=== PATIENT | female | born 1950 | race Caucasian/White ===

== ENCOUNTER → 2016-12-05 | Outpatient (CLI) | payer MEDICARE, OTHER ==
--- NOTE | 2016-12-06 10:45 | MM ---
Reason for exam: screening (asymptomatic). Last mammogram was performed 1 year and 9 months ago. History: Patient is postmenopausal. Physical Findings: A clinical breast exam by your physician is recommended on an annual basis and results should be correlated with mammographic findings. MG Screening Mammo w CAD Bilateral CC and MLO view(s) were taken. XCCL view(s) were taken of the right breast. Prior study comparison: February 22, 2015, bilateral MG screening mammo w CAD. February 01, 2009, bilateral digital screening mammogram. The breast tissue is heterogeneously dense. This may lower the sensitivity of mammography. No significant changes when compared with prior studies. ASSESSMENT: Negative, BI-RAD 1 RECOMMENDATION: Routine screening mammogram of both breasts in 1 year.
== END | disposition home or self-care (01) ==
LOC: RADMAMWWP 15:32
PROVIDERS: ATTEND Family Medicine
DX: Z12.31 Encounter for screening mammogram for malignant neoplasm of breast (principal)

== ENCOUNTER → 2018-04-28 | Outpatient (CLI) | payer MEDICARE, OTHER ==
[2018-04-28 17:57] LABS: Anisocytosis Slight; Basophils % (A) 1 %; Eosinophils # (A) 0.1 k/uL (0-0.7); Eosinophils % (A) 2 %; HCT 31.9 % (34.0-46.0); HGB 9.6 gm/dL (11.4-16.0); Hypochromasia Marked; Lymphocytes # (A) 1.7 k/uL (1.0-4.8); Lymphocytes % (A) 31 %; MCH 25.4 pg (25.0-35.0); MCHC 30.1 g/dL (31.0-37.0); MCV 84.4 fL (80.0-100.0); Mean Platelet Volume 6.7; Monocytes # (A) 0.5 k/uL (0-1.0); Monocytes % (A) 9 %; Neutrophils % (A) 55 %; Platelet Count 327 k/uL (150-450); Poikilocytosis Slight; RBC 3.78 m/uL (3.80-5.40); WBC 5.4 k/uL (3.8-10.6)
== END | disposition home or self-care (01) ==
LOC: LABWHC1 17:13
PROVIDERS: ATTEND Internal Medicine
DX: K26.9 Duodenal ulcer, unspecified as acute or chronic, without hemorrhage or perforation (principal)
CPT/HCPCS: 36415; 85025

== ENCOUNTER 2019-12-08 08:51 | Day surgery (SDC) | payer MEDICARE, OTHER ==
[2019-12-07 09:38] VITALS: BMI 24.6
[~2019-12-08 08:51] MED LIST: LACTATED RINGERS 1,000 ML IV SCH; LIDOCAINE 1% (10MG/ML) FOR IV START INTRADERMA PRN
[2019-12-08 09:20] VITALS: TEMP 97.3
[2019-12-08] MEDS ORDERED: MIDAZOLAM 2 MG/2 ML VIAL ONE (09:51)
[2019-12-08] MEDS ORDERED: PROPOFOL 10 MG/ML 20 ML VIAL IV ONE (09:51)
[2019-12-08] MEDS ORDERED: fentaNYL (PF) 50 MCG/ML 2 ML AMP ONE (09:51)
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
--- NOTE | 2019-12-08 10:07 | P.PCN ---
Date of Procedure: 12/08/19 Procedure(s) Performed: PREOPERATIVE DIAGNOSIS: Colon cancer screening POSTOPERATIVE DIAGNOSIS: Poor prep otherwise normal PROCEDURE: Colonoscopy ANESTHESIA: MAC SURGEON: Kodi Carroll M.D. SPECIMENS: None ENDOSCOPIC PROCEDURE: The patient was placed on the endoscopy table in the left decubitus position. The Olympus colonoscope was inserted into the anus and passed under direct visualization to the base of the cecum. The appendiceal orifice was visualized. From that point the scope was slowly withdrawn inspecting all surfaces carefully. There were no neoplastic inflammatory or polypoid lesions throughout the cecum, ascending, transverse, descending, sigmoid and rectum. There was no visible diverticulosis noted. The patient's prep overall was poor with some retained liquid and solid stool seen scattered throughout the colon. I would estimate we were able to visualize approximately 70% of the mucosal surfaces well. Digital rectal examination was normal. The patient was taken to the recovery room in stable condition per anesthesia guidelines. RECOMMENDATIONS: Prep was poor. This should be kept in mind when determining follow-up colonoscopy. Would consider follow-up colonoscopy 3-5 years at this time
[2019-12-08 10:26] VITALS: RESP 16
[2019-12-08 10:48] VITALS: BP 155/73; PULSE 49
== END 2019-12-08 11:05 | disposition home or self-care (01) ==
LOC: ORWHC2ENDO 08:51
PROVIDERS: ATTEND Surgery
DX: Z12.11 Encounter for screening for malignant neoplasm of colon (principal); K57.30 Diverticulosis of large intestine without perforation or abscess without bleeding; I25.2 Old myocardial infarction; I25.10 Atherosclerotic heart disease of native coronary artery without angina pectoris; I10 Essential (primary) hypertension; E78.5 Hyperlipidemia, unspecified; H91.90 Unspecified hearing loss, unspecified ear; F17.210 Nicotine dependence, cigarettes, uncomplicated; Z95.5 Presence of coronary angioplasty implant and graft; Z79.899 Other long term (current) drug therapy; Z98.891 History of uterine scar from previous surgery; Z98.890 Other specified postprocedural states; Z98.41 Cataract extraction status, right eye; Z98.42 Cataract extraction status, left eye; Z82.49 Family history of ischemic heart disease and other diseases of the circulatory system; Z81.1 Family history of alcohol abuse and dependence; Z83.3 Family history of diabetes mellitus
CPT/HCPCS: J2250; J3010; J2704; G0121

== ENCOUNTER → 2019-12-15 | Outpatient (CLI) | payer MEDICARE, OTHER ==
--- NOTE | 2019-12-16 11:46 | MM ---
Reason for exam: screening (asymptomatic). Last mammogram was performed 3 years ago. History: Patient is postmenopausal. Physical Findings: A clinical breast exam by your physician is recommended on an annual basis and results should be correlated with mammographic findings. MG 3D Screening Mammo W/Cad Bilateral CC and MLO view(s) were taken. Prior study comparison: December 05, 2016, bilateral MG screening mammo w CAD. February 22, 2015, bilateral MG screening mammo w CAD. There are scattered fibroglandular densities. No significant changes when compared with prior studies. ASSESSMENT: Benign, BI-RAD 2 RECOMMENDATION: Routine screening mammogram of both breasts in 1 year.
== END | disposition home or self-care (01) ==
LOC: RADMAMWWP 13:47
PROVIDERS: ATTEND Family Medicine
DX: Z12.31 Encounter for screening mammogram for malignant neoplasm of breast (principal)
CPT/HCPCS: 77063; 77067

== ENCOUNTER → 2020-10-03 | Day surgery (SDC) | payer MEDICARE ==
[2020-09-29 15:51] VITALS: BMI 26.2
[~2020-10-03] MED LIST changes: +ALPRAZolam 0.25 MG TAB PO PRN; +ASPIRIN 325 MG TAB ONE; +ASPIRIN 325 MG TAB PO PRN; +IOPAMIDOL-250 100ML BTL INTRAARTER ONE; -LACTATED RINGERS 1,000 ML IV SCH; -LIDOCAINE 1% (10MG/ML) FOR IV START INTRADERMA PRN; +LIDOCAINE 1% INJ 10MG/ML (20 ML MDV) SQ ONE; +MIDAZOLAM 2 MG/2 ML VIAL IV ONE; +SODIUM CHLORIDE 0.9% 1,000 ML IV ONE; +SODIUM CHLORIDE 0.9% 1,000 ML IV SCH; +SODIUM CHLORIDE 0.9% 1,000 ML in EMPTY BAG 1 BAG IV ONE
[2020-10-03 12:15] LABS: Basophils # (A) 0.1 k/uL (0-0.2); Basophils % (A) 1 %; Eosinophils # (A) 0.2 k/uL (0-0.7); Eosinophils % (A) 3 %; HCT 38.6 % (34.0-46.0); HGB 12.8 gm/dL (11.4-16.0); Lymphocytes # (A) 2.3 k/uL (1.0-4.8); Lymphocytes % (A) 29 %; MCH 30.6 pg (25.0-35.0); MCHC 33.2 g/dL (31.0-37.0); MCV 92.3 fL (80.0-100.0); Mean Platelet Volume 7.3; Monocytes # (A) 0.7 k/uL (0-1.0); Monocytes % (A) 9 %; Neutrophils # (A) 4.3 k/uL (1.3-7.7); Neutrophils % (A) 56 %; Platelet Count 243 k/uL (150-450); RBC 4.18 m/uL (3.80-5.40); RDW 14.6 % (11.5-15.5); WBC 7.6 k/uL (3.8-10.6)
[2020-10-03 12:51] LABS: Calcium 9.8 mg/dL (8.4-10.2); Potassium 4.3 mmol/L (3.5-5.1)
--- NOTE | 2020-10-03 14:28 | IR ---
EXAMINATION TYPE: IR angio abdominal w runoff DATE OF EXAM: 10/03/2020 COMPARISON: NONE HISTORY: Fluoroscopy time. Fluoroscopy was provided to the referring clinician. 1.3 minutes of fluoroscopy.
[2020-10-03 17:30] VITALS: RESP 16
[2020-10-03 17:34] VITALS: BP 95/60; PULSE 64
--- NOTE | 2020-10-03 19:57 | AS ---
ARTERIAL STUDY DATE OF SERVICE: 10/03/2020 PERFORMING PHYSICIAN: Lobo Schumacher MD. PROCEDURE PERFORMED: 1. Abdominal aortogram. 2. Bilateral lower extremity runoff. INDICATION: Bilateral lower extremity intermittent claudication in this 70-year-old female patient with history of smoking. APPROACH: Right common femoral artery. COMPLICATION: None. LEVEL OF SEDATION: Moderate with sedation length of 11 minutes. PROCEDURE DESCRIPTION: After obtaining an informed consent, the patient was brought to the cardiac pie bakery laborer. The right common femoral artery was cannulated using micropuncture technique, the micropuncture wire passed easily then I placed a 5-Yemeni sheath at the right radial artery. I cannulated the right common femoral artery using micropuncture technique under ultrasound guidance. After that I did an abdominal aortogram and bilateral lower extremity runoff using 5- Yemeni pigtail catheter which was initially placed at the level of the renal arteries then it was pulled into above the bifurcation of the aorta to right and left common iliac arteries. The procedure was completed without any complication. SELECTIVE PERIPHERAL ANGIOGRAM: 1. The aorta appeared to be angiographically normal. It bifurcates into right and left common iliac arteries. 2. The right and left common iliac arteries are angiographically normal. 3. External iliac arteries both appear to be angiographically normal. 4. External iliac arteries both appear to be angiographically normal. 5. Common femoral arteries both appear to be angiographically normal. 6. The right SFA appeared to have a tight lesion distally. 7. The left SFA is occluded from the ostium all the way to the popliteal. 8. Popliteal both appeared to be angiographically normal. 9. Below the knee there are two vessel runoff below the knee bilaterally. 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 POSTPROCEDURE MANAGEMENT: GOODWILL AMBASSADOR of the right and left SFA to be performed at 2 separate sessions. MMODL / IJN: [id number] /
== END ==
LOC: CATHCVL 10:37
PROVIDERS: ATTEND Internal Medicine Interventional Cardiology
DX: I70.213 Atherosclerosis of native arteries of extremities with intermittent claudication, bilateral legs (principal); I10 Essential (primary) hypertension; E78.5 Hyperlipidemia, unspecified; Z82.49 Family history of ischemic heart disease and other diseases of the circulatory system; I25.10 Atherosclerotic heart disease of native coronary artery without angina pectoris; I08.1 Rheumatic disorders of both mitral and tricuspid valves; E78.00 Pure hypercholesterolemia, unspecified; Z79.899 Other long term (current) drug therapy; F17.210 Nicotine dependence, cigarettes, uncomplicated
CPT/HCPCS: 36200; 75625; 75716; 76937; 80048; 85025; C1769 ×4; C1894; J2250; J2001; Q9966

== ENCOUNTER 2020-10-12 11:03 | Day surgery (SDC) | payer MEDICARE ==
[2020-10-10 13:49] VITALS: BMI 25.2
[~2020-10-12 11:03] MED LIST changes: -ASPIRIN 325 MG TAB ONE; -IOPAMIDOL-250 100ML BTL INTRAARTER ONE; -LIDOCAINE 1% INJ 10MG/ML (20 ML MDV) SQ ONE; -MIDAZOLAM 2 MG/2 ML VIAL IV ONE; -SODIUM CHLORIDE 0.9% 1,000 ML IV ONE; -SODIUM CHLORIDE 0.9% 1,000 ML IV SCH; +SODIUM CHLORIDE 0.9% 500 ML 500 ML with niCARdipine 6.25 MG, NITROGLYCERIN-D5W PMX 0.05... IV ONE
[2020-10-12 12:23] LABS: Calcium 9.5 mg/dL (8.4-10.2); Potassium 4.1 mmol/L (3.5-5.1)
[2020-10-12] MEDS ORDERED: LIDOCAINE 1% INJ 10MG/ML (20 ML MDV) SQ ONE (13:59)
[2020-10-12] MEDS ORDERED: HYDROmorphone 0.5 MG/0.5 ML SYRINGE IVP ONE (14:00)
[2020-10-12] MEDS: MIDAZOLAM 2 MG/2 ML VIAL IV ONE ×2 (14:00→15:13)
[2020-10-12] MEDS ORDERED: SODIUM CHLORIDE 0.9% 1,000 ML in EMPTY BAG 1 BAG IV SCH (16:15)
--- NOTE | 2020-10-12 19:13 | PTCA ---
PERCUTANEOUSTRANS CORORONARY ANGIOGRAPHY DATE OF SERVICE: October 12, 2020 PERFORMING PHYSICIAN: Lobo Schumacher MD. PROCEDURE PERFORMED: 1. Atherectomy of the left popliteal and left SFA using the orbital atherectomy device. 2. Intravascular ultrasound (IVUS) of the left popliteal and left SFA. 3. Successful stenting of the left popliteal and left SFA using using 3 Zilver PTX drug-coated stent, as it will be described later in the report next. 4. Selective angiogram of the left popliteal and left SFA and left posterior tibial artery. 5. Selective angiogram of the right common femoral artery. INDICATION: Severe left lower extremity intermittent claudication in this 70-year-old female patient who is known to have occluded left SFA. APPROACH: Right common femoral artery and left posterior tibial artery. COMPLICATION: None. LEVEL OF SEDATION: Moderate with sedation length of 127 minutes. PROCEDURE DESCRIPTION: After obtaining an informed consent, the patient was brought to the cardiac qc lab technician. The right common femoral artery was cannulated using micropuncture technique and a micropuncture wire passed easily, then I placed a 6-Mexican, 70 cm sheath at the right common femoral artery. After that I did select the left common femoral artery using a 5-Mexican RIM catheter over a 0.035 stiff Glidewire, and subsequently I advanced the sheath over the wire and the catheter to the left common femoral artery. Attempting crossing the STEEL BOX TOE INSERTER in antegrade technique was unsuccessful. For that reason I decided to access the left posterior tibial artery. The left posterior tibial artery was cannulated using micropuncture technique under ultrasound guidance, the micropuncture wire passed easily then I placed a 6 a slender 5/6-Mexican sheath at the left posterior tibial artery with continuous infusion of heparin, as well as verapamil, as well as nitroglycerin was initiated. With a retrograde approach, I was able to cross the STEEL BOX TOE INSERTER of the left SFA and advance the wire all the way to the left common femoral artery. I did intravascular ultrasound which showed I was in the false lumen. I was able to see the true lumen. I attempted crossing the STEEL BOX TOE INSERTER again in antegrade technique and I was able to go to the STEEL BOX TOE INSERTER through the true lumen, so the wire from down was pulled out and I finished everything from above. Initially, I did balloon angioplasty using 5 mm balloon with inadequate angiographic results, but before that I did atherectomy using the orbital atherectomy device and using 1.5 mm elenita. After that, and because of the inadequate angiographic results, I decided to stent the left SFA. I placed in the left popliteal and left SFA 6.0 x 140 mm Zilver PTX drug- coated stent. In the mid left SFA, I placed another 6.1 x 140 mm. In the very proximal left SFA by the bifurcation from the common, I placed 7 x 80 mm. I postdilated everything using 6 mm balloon with the final angiogram showing excellent angiographic results and the procedure was completed without any complication. After that, I did exchange my long sheath into short sheath using 0.035 stiff Glidewire before I did selective right common femoral artery angiogram. POSTPROCEDURE MANAGEMENT: 1. Dual anti-platelet therapy. 2. Aggressive cholesterol control. 3. Risk factor modifications. 4. Follow up with the patient. EFFIE / LAILA: [id number] /
[2020-10-12] MEDS ORDERED: ATROPINE SULFATE 0.1 MG/ML 10ML SYRINGE ONE (23:34)
[2020-10-13 03:25] VITALS: RESP 16; TEMP 97.9
--- NOTE | 2020-10-13 07:38 | CONS ---
CONSULTATION A 70-year-old white female, status post PAD with an angioplasty to the leg. There is no chest pain. No shortness of breath. No lightheadedness, dizziness, syncope. Status post angioplasty. We are going to restart her home medications which include Zestril 2.5 mg daily, Tenormin 25 mg daily, alprazolam 0.25 q6h, simvastatin 40 mg daily, ropinirole 1 mg at night, Singulair 10 mg daily, spironolactone 25 mg daily. Vital signs stable, afebrile. Cardiovascular S1, S2. Lungs clear. GI soft. Hematology negative Homans. Psych fair mood and affect., Neurologic alert orient x3. ASSESSMENT: Status post angioplasty, peripheral arterial disease, dyslipidemia, allergic rhinitis, hypertension, anxiety. Prognosis is guarded. Condition stable. Follow up in the next 24 to 48 hours for discharge. MMODL / IJN: [id number] /
[2020-10-13 08:54] VITALS: BP 120/59; PULSE 66
[2020-10-13] MEDS ORDERED: atenoloL 25 MG TAB PO SCH (09:00)
[2020-10-13] MEDS ORDERED: SPIRONOLACTONE 25 MG TAB PO SCH (09:00)
[2020-10-13] MEDS ORDERED: MONTELUKAST 10 MG TAB PO SCH (09:00)
[2020-10-13] MEDS ORDERED: ATORVASTATIN 20 MG TAB PO SCH (09:00)
[2020-10-13 09:19] LABS: Basophils % (A) 0 %; Eosinophils # (A) 0.1 k/uL (0-0.7); Eosinophils % (A) 2 %; HCT 36.9 % (34.0-46.0); HGB 12.3 gm/dL (11.4-16.0); Lymphocytes # (A) 1.1 k/uL (1.0-4.8); Lymphocytes % (A) 16 %; MCH 30.6 pg (25.0-35.0); MCHC 33.5 g/dL (31.0-37.0); MCV 91.5 fL (80.0-100.0); Mean Platelet Volume 7.2; Monocytes # (A) 0.6 k/uL (0-1.0); Monocytes % (A) 8 %; Neutrophils % (A) 73 %; Platelet Count 229 k/uL (150-450); RBC 4.03 m/uL (3.80-5.40); RDW 15.2 % (11.5-15.5); WBC 6.9 k/uL (3.8-10.6)
[2020-10-13 09:31] LABS: African American GFR (CKD) >90 (>60 ml/min/1.73 sqM); Anion Gap 7 mmol/L; Blood Urea Nitrogen 10 mg/dL (7-17); Calcium 8.9 mg/dL (8.4-10.2); Carbon Dioxide 20 mmol/L (22-30); Chloride 113 mmol/L (98-107); Glucose 101 mg/dL (74-99); Non-African American GFR(CKD) 82 (>60 ml/min/1.73 sqM); Potassium 3.7 mmol/L (3.5-5.1); Sodium 140 mmol/L (137-145)
--- NOTE | 2020-10-13 09:58 | DS ---
DISCHARGE SUMMARY DATE OF ADMISSION: October 12, 2020. DISCHARGE DATE: October 13, 2020 BRIEF HISTORY: This is a very pleasant 70-year-old female patient who underwent yesterday successful angioplasty of the left SFA and left popliteal with good angiographic results from the right groin and left approach. She was seen this morning. Both sites are looking good. She is going to be discharged on dual anti-platelet therapy along with statin. No blood work was performed this morning and I just ordered a CBC and BMP urgently on her. I will follow up with the patient in a week. MMODL / IJN: [id number] /
--- NOTE | 2020-10-14 07:47 | IR ---
EXAMINATION TYPE: IR stent intravas non coronary DATE OF EXAM: 10/12/2020 COMPARISON: NONE HISTORY: Fluoroscopy time. Fluoroscopy was provided to the referring clinician.
--- NOTE | 2020-10-18 06:56 | CDI ---
Outpatient Documentation Clarification Form Date: 10/18/20 CDS/Ruffling Hemmer Automatic Name: Jacqui Woodall Phone: If any questions, call Kwesi Corea at [phone] Patient Name: Edmund Espinoza Admit Date: 10/12/20 Discharge Date: 10/13/20 ATTENTION: The [facility] coding Staff appreciate your assistance in clarifying documentation. Please respond to the clarification below the line at the bottom and electronically sign. The [facility] Coding staff will review the response and follow-up if needed. Please note: Queries are made part of the Legal Health Record. If you have any questions, please contact the Coding Manger. Dear. Dr. Schumacher, Please provide clarification as to the cause of the occlusive PAD. PAD/PVD is considered unspecified. Greatest specificity is required for medical necessity support and for payer medical necessity. Is underlying cause of the occlusive PAD one of the following? Arteriosclerotic disease of the arteries Arteritis Necrotic Due to embolism/thrombosis Other - Please specify below Thank you for your kind consideration, MTDD
== END 2020-10-13 12:09 | disposition home or self-care (01) ==
LOC: CATHCVL 11:03 → 3SCARD 16:06 → CATHCVL 10-13 12:09
PROVIDERS: ATTEND Internal Medicine Interventional Cardiology
DX: I70.212 Atherosclerosis of native arteries of extremities with intermittent claudication, left leg (principal); I25.10 Atherosclerotic heart disease of native coronary artery without angina pectoris; Z95.5 Presence of coronary angioplasty implant and graft; I10 Essential (primary) hypertension; E78.5 Hyperlipidemia, unspecified; Z82.49 Family history of ischemic heart disease and other diseases of the circulatory system; F17.210 Nicotine dependence, cigarettes, uncomplicated; Z79.899 Other long term (current) drug therapy
CPT/HCPCS: 37227; 37252; 80048 ×2; 85025; C1894 ×3; C1769 ×8; C1714; C1725; C1887; C1753; C1874 ×2; J2250; J2001; J1644; J1170

== ENCOUNTER → 2022-10-04 | Outpatient (CLI) | payer MEDICARE ==
--- NOTE | 2022-10-04 19:13 | XR ---
EXAMINATION TYPE: XR knee complete LT, XR tibia fibula LT DATE OF EXAM: 10/04/2022 3:18 PM INDICATION: Patient age:Female; 72 years old; Reason for study: M79.605 Pain left leg; PHH. COMPARISON: None TECHNIQUE: The Left knee(s) was examined in 3 projections. Frontal, lateral and oblique. The left tib ia/fibular was examined in AP and lateral projections. FINDINGS: No acute fracture or dislocation. Tricompartmental joint space narrowing with marginal os teophytosis. Small suprapatellar joint effusion. Prominent suprapatellar spurring. Resection changes of the mid fibula identified. No osseous erosions. No soft tissue swelling. Vascular sclerosis with s uperficial femoral artery vascular stent identified. IMPRESSION: 1. No acute osseous pathology. 2. Mild to moderate tricompartmental osteoarthritic changes. 3. Resection changes of the mid fibula.
== END | disposition home or self-care (01) ==
LOC: RADXRMAIN 14:54
PROVIDERS: ATTEND Family Medicine
DX: M17.12 Unilateral primary osteoarthritis, left knee (principal)

== ENCOUNTER → 2024-04-14 | Outpatient (CLI) | payer MEDICARE ==
--- NOTE | 2024-04-14 19:53 | CT ---
EXAMINATION TYPE: CT elbow LT wo con DATE OF EXAM: 04/14/2024 7:14 PM COMPARISON: None. CLINICAL INDICATION: Female, 74 years old with history of S50.02XA CONTUSION L ELBOW M25.522 L ELBOW PAIN, Left elbow pain after fall. TECHNIQUE: Contrast used: mL of , (none if empty) Oral contrast used: (none if empty) Axial images at 2 mm thick sections. Reconstructed images in the coronal and sagittal planes. 3-D re constructed images are reviewed on the computer. FINDINGS: No acute fractures are evident. Radius aligns normally at the humerus. No joint effusion is evident. Joint spaces are preserved. IMPRESSION: 1. NO SUSPICIOUS ACUTE OSSEOUS ABNORMALITY WITHIN THE [id number] LEFT ELBOW [facility], Workstation: [facility], 04/14/2024 7:51 PM
== END | disposition home or self-care (01) ==
LOC: RADCTMAIN 18:35
PROVIDERS: ATTEND Family Medicine
DX: S50.02XA Contusion of left elbow, initial encounter (principal); W19.XXXA Unspecified fall, initial encounter